=== PATIENT | female | born 1955 | race Caucasian/White ===

== ENCOUNTER → 2016-08-02 | Outpatient (CLI) | payer BC | END | disposition home or self-care (01) | LOC: MW.CHFP 09:22 | PROVIDERS: ATTEND Emergency Medicine | DX: D75.1 Secondary polycythemia (principal) | CPT/HCPCS: 36415; 99195 ==

== ENCOUNTER → 2016-08-31 | Outpatient (CLI) | payer BC ==
--- NOTE | 2016-09-03 16:03 | MY ---
EXAMINATION: Bilateral digital mammography utilizing CAD. HISTORY: Screening exam. Comparison is made to previous studies dated 08/25/2015, 08/23/2014. FINDINGS: Bilateral scattered fibroglandular densities. No suspicious calcifications, masses or architectural distortions. No pathologic appearing lymph nodes, no abnormal skin thickening or nip ple inversion. CAD highlighted regions appear normal at this time. IMPRESSION: BI-RADS category I - negative mammogram. Continued screening according to ACR-ACS gu idelines suggested. THE FALSE-NEGATIVE RATE OF MAMMOGRAM IS APPROXIMATELY 10%. MANAGEMENT OF A PALPABLE ABNORMALITY MUST BE BASED UPON CLINICAL GROUNDS. SENSITIVITY FOR DETECTION OF ABNORMALITIES IN DENSE BREASTS IS LOW. NOTE: A letter will be sent to the patient regarding findings. [facility] [place] -- [place] [phone] - FAX [phone]
== END ==
LOC: MW.MAM 10:58
PROVIDERS: ATTEND Emergency Medicine
DX: Z12.31 Encounter for screening mammogram for malignant neoplasm of breast (principal)
CPT/HCPCS: G0202; G0202-26

== ENCOUNTER 2018-11-28 09:00 | Observation (INO) | payer MEDICARE, OTHER ==
--- NOTE | 2018-11-28 09:23 | EDM.PDOC ---
ED HPI GENERAL MEDICAL PROBLEM - General Chief Complaint: Skin Complaint Stated Complaint: ANAL ABSCESS Time Seen by Provider: 11/28/18 09:20 Source of Information: Reports: Patient History Limitations: Reports: No Limitations - History of Present Illness INITIAL COMMENTS - FREE TEXT/NARRATIVE: History of present illness: []Patient has had 2 days of pain on her left buttock. She was seen in the clinic and started on antibiotics and blood work was done. Her doctor called her this morning because the CBC from yesterday had a white count of 22,000. She was told to come to the emergency room immediately. She denies any fevers, chills or drainage from the wound Review of systems: As per history of present illness and below otherwise all systems reviewed and negative. Past medical history: As per history of present illness and as reviewed below otherwise noncontributory. Surgical history: As per history of present illness and as reviewed below otherwise noncontributory. Social history: No reported history of drug or alcohol abuse. Family history: As per history of present illness and as reviewed below otherwise noncontributory. Physical exam: General: Well developed, well nourished in NAD HEENT: Atraumatic, normocephalic, pupils reactive, negative for conjunctival pallor or scleral icterus, mucous membranes moist, throat clear, neck supple, nontender, trachea midline. Lungs: Clear to auscultation, breath sounds equal bilaterally, chest nontender. Heart: S1S2, regular, negative for clicks, rubs, or JVD. Abdomen: NABS, Soft, nondistended, nontender. Negative for masses or hepatosplenomegaly. Negative for costovertebral tenderness. Pelvis: Stable nontender. Genitourinary: Deferred. Rectal: Deferred. Extremities: Atraumatic, negative for cords or calf pain. Neurovascular unremarkable. Neuro: Awake, alert, oriented. Cranial nerves II through XII unremarkable. Cerebellum unremarkable. Motor and sensory unremarkable throughout. Exam nonfocal. Skin:warm and dry Diagnostics: CBC, blood cultures, chemistry, lactic acid ultrasound of abscess Therapeutics: Declined Pain meds ED Course: Stable, consulted Dr. LAMB Impression: Buttock abscess Prescriptions: Plan: Definitive disposition and diagnosis as appropriate pending reevaluation and review of above. Lower Back Pain Score (Numeric/FACES): 5 - Related Data Allergies Allergy/AdvReac Type Severity Reaction Status Date / Time No Known Allergies Allergy Verified 11/28/18 09:14 Home Meds: Home Meds Atenolol 50 mg PO BID 01/12/16 [History] Furosemide [Lasix] 20 mg PO ASDIRECTED PRN 01/12/16 [History] NIFEdipine [Procardia Xl] 60 mg PO DAILY 01/12/16 [History] Aspirin [Ecotrin EC] 325 mg PO DAILY 11/28/18 [History] Magnesium Oxide [Magnesium] 500 mg PO DAILY 11/28/18 [History] Sulfamethoxazole/Trimethoprim [Bactrim Ds Tablet] 1 each PO BID 11/28/18 [ History] Past Medical History Other HEENT History: wears glasses Cardiovascular History: Reports: Hypertension, Other (See Below) Other Cardiovascular History: Raynauds Syndrone, takes procardia, dependant edema Respiratory History: Reports: None Gastrointestinal History: Reports: None Genitourinary History: Reports: Urinary Incontinence Other Genitourinary History: stress incontinence [employer] History: Reports: Musculoskeletal History: Reports: Arthritis Neurological History: Reports: Migraines, Other (See Below) Other Neuro History: has motion sickness Psychiatric History: Reports: None Endocrine/Metabolic History: Reports: Obesity/BMI 30+ Hematologic History: Reports: None, Blood Transfusion(s), Polycythemia Other Hematologic History: had Auto-Transfusions with both TKA Immunologic History: Reports: None Oncologic (Cancer) History: Reports: None Dermatologic History: Reports: None - Past Surgical History HEENT Surgical History: Reports: Adenoidectomy, Tonsillectomy Respiratory Surgical History: Reports: None GI Surgical History: Reports: Appendectomy, Colonoscopy Female Surgical History: Reports: Section, D&C, Hysterectomy, Oophorectomy, Other (See Below) Endocrine Surgical History: Reports: None Musculoskeletal Surgical History: Reports: Knee Replacement Oncologic Surgical History: Reports: None Social & Family History - Family History Family Medical History: Noncontributory - Tobacco Use Smoking Status *Q: Never Smoker - Recreational Drug Use Recreational Drug Use: No ED ROS GENERAL - Review of Systems Review Of Systems: See Below ED EXAM, SKIN/RASH Exam: See Below Course - Vital Signs Last Recorded V/S: Last Vital Signs Temp 98.2 F 11/28/18 15:28 Pulse 78 11/28/18 15:28 Resp 22 H 11/28/18 15:28 BP 115/56 L 11/28/18 15:28 Pulse Ox 94 L 11/28/18 15:28 - Orders/Labs/Meds Orders: Active Orders 24 hr Category Date Time Status Patient Status [ADT] Stat ADT 11/28/18 11:15 Active Intake and Output [RC] Q12H Care 11/28/18 11:46 Active Oxygen Therapy [RC] PRN Care 11/28/18 11:46 Active Up ad Carmela [RC] ASDIRECTED Care 11/28/18 11:46 Active VTE/DVT Education [RC] Q12H Care 11/28/18 11:46 Active Vital Signs [RC] Q4H Care 11/28/18 11:46 Active Regular Diet [DIET] Diet 11/28/18 Dinner Active CULTURE BLOOD [BC] Stat Lab 11/28/18 10:25 Results CULTURE BLOOD [BC] Stat Lab 11/28/18 10:40 Results Acetaminophen [Tylenol] Med 11/28/18 11:46 Active 650 mg PO Q4H PRN Enoxaparin [Lovenox] Med 11/28/18 12:00 Active 40 mg SUBCUT Q24H Morphine Med 11/28/18 11:46 Active 2 mg IVPUSH Q2H PRN Ondansetron [Zofran ODT] Med 11/28/18 11:46 Active 4 mg PO Q4H PRN Ondansetron [Zofran] Med 11/28/18 11:46 Active 4 mg IVPUSH Q4H PRN Sodium Chloride 0.9% [Saline Flush] Med 11/28/18 09:34 Active 10 ml FLUSH ASDIRECTED PRN Sodium Chloride 0.9% [Saline Flush] Med 11/28/18 09:34 Active 2.5 ml FLUSH ASDIRECTED PRN Temazepam [Restoril] Med 11/28/18 11:46 Active 15 mg PO BEDTIME PRN Blood Culture x2 Reflex Set [OM.PC] Stat Oth 11/28/18 09:34 Ordered Saline Lock Insert [OM.PC] Stat Oth 11/28/18 09:34 Ordered Resuscitation Status Routine Resus Stat 11/28/18 11:46 Ordered Medication Orders Acetaminophen (Tylenol) 650 mg PO Q4H PRN PRN Reason: Pain (Mild 1-3)/fever Hydrocodone Bitart/Acetaminophen (Philpot 325-5 Mg) 1 tab PO Q4H PRN PRN Reason: Pain Atenolol (Tenormin) 50 mg PO BID [facility] Enoxaparin Sodium (Lovenox) 40 mg SUBCUT Q24H [facility] Last Admin: 11/28/18 12:55 Dose: 40 mg Vancomycin HCl 2 gm/ Sodium (Chloride) 500 mls @ 250 mls/hr IV Q12H [facility] Last Admin: 11/28/18 13:44 Dose: 250 mls/hr Sodium Chloride (Normal Saline) 1,000 mls @ 125 mls/hr IV ASDIRECTED [facility] Stop: 11/28/18 21:14 Last Admin: 11/28/18 14:03 Dose: 125 mls/hr Ibuprofen (Motrin) 800 mg PO Q8H PRN PRN Reason: Pain Last Admin: 11/28/18 13:23 Dose: 800 mg Morphine Sulfate (Morphine) 2 mg IVPUSH Q2H PRN PRN Reason: Pain (severe 7-10) Stop: 11/29/18 11:47 Ondansetron HCl (Zofran Odt) 4 mg PO Q4H PRN PRN Reason: nausea, able to take PO Ondansetron HCl (Zofran) 4 mg IVPUSH Q4H PRN PRN Reason: Nausea Sodium Chloride (Saline Flush) 10 ml FLUSH ASDIRECTED PRN PRN Reason: Keep Vein Open Sodium Chloride (Saline Flush) 2.5 ml FLUSH ASDIRECTED PRN PRN Reason: Keep Vein Open Temazepam (Restoril) 15 mg PO BEDTIME PRN PRN Reason: Sleep Vancomycin HCl (Pharmacy To Dose - Vancomycin) 1 dose .XX ASDIRECTED [facility] Labs: Laboratory Tests 11/28/18 11/28/18 11/28/18 Range/Units 10:25 10:25 10:25 WBC 27.21 H (4.0-11.0) K/uL RBC 5.01 (4.30-5.90) M/uL Hgb 15.3 (12.0-16.0) g/dL Hct 45.5 (36.0-46.0) % MCV 90.8 (80.0-98.0) fL MCH 30.5 (27.0-32.0) pg MCHC 33.6 (31.0-37.0) g/dL RDW Std Deviation 51.7 (28.0-62.0) fl RDW Coeff of Emmanuel 16 H (11.0-15.0) % Plt Count 159 (150-400) K/uL MPV 12.10 H (7.40-12.00) fL Add Manual Diff YES Neutrophils % (Manual) 78 (48.0-80.0) % Band Neutrophils % 14 % Lymphocytes % (Manual) 3 L (16.0-40.0) % Monocytes % (Manual) 5 (0.0-15.0) % Nucleated RBC % 0.0 /100WBC Absolute Seg Neuts 21.2 H (1.4-5.7) Band Neutrophils # 3.8 Lymphocytes # (Manual) 0.8 (0.6-2.4) Monocytes # (Manual) 1.4 H (0.0-0.8) Nucleated RBCs # 0 K/uL Lactate 2.0 (0.20-2.00) mmol/L Sodium 136 (136-145) mmol/L Potassium 4.2 (3.5-5.1) mmol/L Chloride 98 (98-107) mmol/L Carbon Dioxide 24.2 (21.0-32.0) mmol/L BUN 12 (7.0-18.0) mg/dL Creatinine 0.7 (0.6-1.0) mg/dL Est Cr Clr Drug Dosing 63.37 mL/min Estimated GFR (MDRD) > 60.0 ml/min Glucose 126 H (74-106) mg/dL Hemoglobin A1c (4.5-6.2) % Calcium 9.2 (8.5-10.1) mg/dL Total Bilirubin 1.1 H (0.2-1.0) mg/dL AST 30 (15-37) IU/L ALT 34 (14-63) IU/L Alkaline Phosphatase 104 (46-116) U/L Total Protein 6.7 (6.4-8.2) g/dL Albumin 3.3 L (3.4-5.0) g/dL Globulin 3.4 (2.6-4.0) g/dL Albumin/Globulin Ratio 1.0 (0.9-1.6) /01/08 Range/Units 10:25 WBC (4.0-11.0) K/uL RBC (4.30-5.90) M/uL Hgb (12.0-16.0) g/dL Hct (36.0-46.0) % MCV (80.0-98.0) fL MCH (27.0-32.0) pg MCHC (31.0-37.0) g/dL RDW Std Deviation (28.0-62.0) fl RDW Coeff of Emmanuel (11.0-15.0) % Plt Count (150-400) K/uL MPV (7.40-12.00) fL Add Manual Diff Neutrophils % (Manual) (48.0-80.0) % Band Neutrophils % % Lymphocytes % (Manual) (16.0-40.0) % Monocytes % (Manual) (0.0-15.0) % Nucleated RBC % /100WBC Absolute Seg Neuts (1.4-5.7) Band Neutrophils # Lymphocytes # (Manual) (0.6-2.4) Monocytes # (Manual) (0.0-0.8) Nucleated RBCs # K/uL Lactate (0.20-2.00) mmol/L Sodium (136-145) mmol/L Potassium (3.5-5.1) mmol/L Chloride (98-107) mmol/L Carbon Dioxide (21.0-32.0) mmol/L BUN (7.0-18.0) mg/dL Creatinine (0.6-1.0) mg/dL Est Cr Clr Drug Dosing mL/min Estimated GFR (MDRD) ml/min Glucose (74-106) mg/dL Hemoglobin A1c 5.8 (4.5-6.2) % Calcium (8.5-10.1) mg/dL Total Bilirubin (0.2-1.0) mg/dL AST (15-37) IU/L ALT (14-63) IU/L Alkaline Phosphatase (46-116) U/L Total Protein (6.4-8.2) g/dL Albumin (3.4-5.0) g/dL Globulin (2.6-4.0) g/dL Albumin/Globulin Ratio (0.9-1.6) Meds: Medications Generic Name Dose Route Start Last Admin Trade Name Freq PRN Reason Stop Dose Admin Acetaminophen 650 mg 11/28/18 11:46 Tylenol PO Q4H PRN Pain (Mild 1-3)/fever Hydrocodone Bitart/Acetaminophen 1 tab 11/28/18 11:50 Philpot 325-5 Mg PO Q4H PRN Pain Atenolol 50 mg 11/28/18 21:00 Tenormin PO BID [facility] Enoxaparin Sodium 40 mg 11/28/18 12:00 11/28/18 12:55 Lovenox SUBCUT 40 mg Q24H [facility] Administration Vancomycin HCl 2 gm/ Sodium 500 mls @ 250 mls/hr 11/28/18 13:00 11/28/18 13: 44 Chloride IV 250 mls/hr Q12H [facility] Administration Sodium Chloride 1,000 mls @ 125 mls/hr 11/28/18 13:15 11/28/18 14:03 Normal Saline IV 11/28/18 21:14 125 mls/hr ASDIRECTED [facility] Administration Ibuprofen 800 mg 11/28/18 13:03 11/28/18 13:23 Motrin PO 800 mg Q8H PRN Administration Pain Morphine Sulfate 2 mg 11/28/18 11:46 Morphine IVPUSH 11/29/18 11:47 Q2H PRN Pain (severe 7-10) Ondansetron HCl 4 mg 11/28/18 11:46 Zofran Odt PO Q4H PRN nausea, able to take PO Ondansetron HCl 4 mg 11/28/18 11:46 Zofran IVPUSH Q4H PRN Nausea Sodium Chloride 10 ml 11/28/18 09:34 Saline Flush FLUSH ASDIRECTED PRN Keep Vein Open Sodium Chloride 2.5 ml 11/28/18 09:34 Saline Flush FLUSH ASDIRECTED PRN Keep Vein Open Temazepam 15 mg 11/28/18 11:46 Restoril PO BEDTIME PRN Sleep Vancomycin HCl 1 dose 11/28/18 12:00 Pharmacy To Dose - Vancomycin .XX ASDIRECTED [facility] Discontinued Medications Generic Name Dose Route Start Last Admin Trade Name Freq PRN Reason Stop Dose Admin Metronidazole 500 mg/ Premix 100 mls @ 100 mls/hr 11/28/18 09:34 11/28/18 10: 49 IV 11/28/18 10:33 100 mls/hr ONETIME ONE Administration Ondansetron HCl 4 mg 11/28/18 10:56 11/28/18 10:59 Zofran IVPUSH 11/28/18 10:57 4 mg ONETIME ONE Administration Departure - Departure Time of Disposition: 13:05 Disposition: Refer to Observation Condition: Good Clinical Impression: Perirectal abscess, Cellulitis of buttock - Discharge Information *PRESCRIPTION DRUG MONITORING PROGRAM REVIEWED*: No *COPY OF PRESCRIPTION DRUG MONITORING REPORT IN PATIENT DAQUAN: No - My Orders Last 24 Hours: My Active Orders 11/28/18 09:34 Sodium Chloride 0.9% [Saline Flush] 10 ml FLUSH ASDIRECTED PRN Sodium Chloride 0.9% [Saline Flush] 2.5 ml FLUSH ASDIRECTED PRN Blood Culture x2 Reflex Set [OM.PC] Stat Saline Lock Insert [OM.PC] Stat 11/28/18 10:25 CULTURE BLOOD [BC] Stat 11/28/18 10:40 CULTURE BLOOD [BC] Stat 11/28/18 11:15 Patient Status [ADT] Stat - Assessment/Plan Last 24 Hours: My Active Orders 11/28/18 09:34 Sodium Chloride 0.9% [Saline Flush] 10 ml FLUSH ASDIRECTED PRN Sodium Chloride 0.9% [Saline Flush] 2.5 ml FLUSH ASDIRECTED PRN Blood Culture x2 Reflex Set [OM.PC] Stat Saline Lock Insert [OM.PC] Stat 11/28/18 10:25 CULTURE BLOOD [BC] Stat 11/28/18 10:40 CULTURE BLOOD [BC] Stat 11/28/18 11:15 Patient Status [ADT] Stat
[2018-11-28] MEDS ORDERED: Sodium Chloride 0.9% 10 ML Syringe FLUSH PRN (09:34)
[2018-11-28] MEDS ORDERED: Sodium Chloride 0.9% 2.5 ML Syringe FLUSH PRN (09:34)
[2018-11-28] MEDS ORDERED: metroNIDAZOLE/Normal Saline 500 MG in Premix Bag 1 BAG IV ONE (09:34)
--- NOTE | 2018-11-28 10:44 | PCM.SN ---
- Free Text/Narrative Note: Called by nursing as they have had several unsuccessful IV attempts. Ultrasound was used to identify the Left AC, 20g IV catheter was introduced into the vessel, minimal blood return was noted. I was able to obtain 5mL of blood for lab studies. IV flushes with ease, secured with tape and tegaderm. Patient tolerated placement well.
[2018-11-28] MEDS ORDERED: Ondansetron 4 MG/2 ML SDV IVPUSH ONE (10:56)
--- NOTE | 2018-11-28 11:27 | US ---
HISTORY: Buttock abscess. Redness. TECHNIQUE: Targeted ultrasound in the left gluteal soft tissues. COMPARISON: None. FINDINGS: 7 mm irregularly-shaped hypoechoic focus with mobile internal debris in the left buttock in the area of redness. No other focal abnormality. IMPRESSION: 7 mm area of probable phlegmon or abscess in the left gluteal soft tissues in the area of interest. Dictated by Eran Snyder MD @ Nov 28 2018 11:24AM Signed by Dr. Eran Snyder @ Nov 28 2018 11:26AM
[2018-11-28] MEDS ORDERED: Ondansetron 4 MG Tab.DIS PO PRN (11:46)
[2018-11-28] MEDS ORDERED: Morphine 10 MG/ML Syringe IVPUSH PRN (11:46)
[2018-11-28] MEDS ORDERED: Temazepam 15 MG Cap PO PRN (11:46)
[2018-11-28] MEDS ORDERED: Acetaminophen/HYDROcodone 325-5 MG Tab PO PRN (11:50)
[2018-11-28 12:09] LABS: BLOOD UREA NITROGEN,BUN 12 mg/dL (7.0-18.0); CARBON DIOXIDE,CO2 24.2 mmol/L (21.0-32.0); CHLORIDE,CL 98 mmol/L (98-107); GLUCOSE RANDOM 126 mg/dL (74-106); POTASSIUM,K 4.2 mmol/L (3.5-5.1); SODIUM,NA 136 mmol/L (136-145)
[2018-11-28] MEDS: Enoxaparin 40 MG/0.4 ML Syringe SUBCUT SCH (12:55)
--- NOTE | 2018-11-28 13:11 | CONS ---
DATE OF CONSULTATION: 11/28/2018 DATE OF : 1955 PRIMARY CARE PHYSICIAN: Unknown PCP REASON FOR CONSULTATION: Consult was called, the patient was seen shortly after. Concerning question is cellulitis. HISTORY OF PRESENT ILLNESS: The patient is a 63-year-old morbidly obese lady and used to work in the hospital in the past. BMI of 57. Complained over 2-day history of acute onset of left buttock pain and seen in primary care provider, put on some antibiotic. White count at that time was 20,000, and 2 days later the pain did not go way and sought help in the emergency room. White count 27. Surgery was consulted. PAST MEDICAL HISTORY: Significant for no diabetes, RI, CVA. The patient has hypertension. PAST SURGICAL HISTORY: , tonsil, appendectomy, and normal vaginal delivery. ALLERGIES: Please refer to nursing for details. MEDICATION: Please refer to nursing for details. PHYSICAL EXAMINATION: GENERAL: A very pleasant lady, lying on her back, in no acute distress, smiled to the doctor, very polite, cooperative with examination. HEENT: Normocephalic and atraumatic. Sclerae anicteric. LUNGS: Clear to auscultation. HEART: Regular rate and rhythm. ABDOMEN: Soft, nondistended. No pulsating, tender midline abdominal structure. Large lower midline surgical incision. DERMATOLOGIC: Perineum examination on the left buttock right at the high end of the buttock, probably right on top of the ischial tuberosity, there is a little bit rash. Rash spreading about 10 cm, but only at the top of the rash, which is around like 3 cm, it is a little bit hard and indurated, nontender. Mild tenderness upon deep palpation. No sacral tenderness. Nontender in the perineal body. No other places that are tender. Only mild tenderness at the peak where the increased hyperemic 3 cm area. Skin intact. IMPRESSION: Cellulitis. Ultrasound shows there is no drainable material, and the patient will benefit from either IV antibiotic or oral antibiotic and follow up in my office anytime next week. If pain disappears, probably do not need to follow up. If the pain persists or getting worse, either seek help in the emergency room or follow up with me up to the weekend. By then, the infection may be more mature and materialize and maybe it is drainable. For the time being, the patient has cellulitis, no drainable abscess. The plan has been discussed with the ER provider, Dr. Sanz. As always, thank you for the kind referral. RON RUIZ /[id number]
[2018-11-28] MEDS ORDERED: Sodium Chloride 0.9% 1,000 ML IV SCH (13:15)
[2018-11-28] MEDS: Ibuprofen 800 MG Tab PO PRN (13:23)
[2018-11-28] MEDS: Vancomycin 2 GM in Sodium Chloride 0.9% 500 ML IV SCH (13:44)
--- NOTE | 2018-11-28 14:06 | PCM.HP ---
H&P History of Present Illness - General Date of Service: 11/28/18 Admit Problem/Dx: Admission Diagnosis/Problem Admission Diagnosis/Problem Cellulitis and abscess - History of Present Illness Initial Comments - Free Text/Narative: 63 y/o female presenting to the ER complaining of worsening gluteal pain. States that her pain started on Saturday and that is has been progressively getting worse. Rates pain 10/10. Saw her PCP yesterday and was prescribed Bactrim but pain was intolerable that she decided to go to the ER. She has been endorsing subjective fevers, chills. Some nausea. No vomiting, chest pain, dyspnea, abdominal pain,dysuria, diarrhea. No rashes or pain anywhere else on body. In the ER, she had leukocytosis of 27K. Was started on IV antibiotics. General surgery was consulted, however, ultrasound did not show any drainable abscess. She was admitted for IV antibiotics and pain control. Lower Back Pain Score (Numeric/FACES): 5 - Related Data Allergies/Adverse Reactions: Allergies Allergy/AdvReac Type Severity Reaction Status Date / Time No Known Allergies Allergy Verified 11/28/18 09:14 Home Medications: Home Meds Atenolol 1 tab PO BID 01/12/16 [History] Furosemide [Lasix] 1 tab PO ASDIRECTED PRN 01/12/16 [History] NIFEdipine [Procardia Xl] 1 tab PO DAILY 01/12/16 [History] Aspirin [Ecotrin EC] 325 mg PO DAILY 11/28/18 [History] Magnesium Oxide [Magnesium] 500 mg PO DAILY 11/28/18 [History] Sulfamethoxazole/Trimethoprim [Bactrim Ds Tablet] 1 each PO BID 11/28/18 [ History] Past Medical History Other HEENT History: wears glasses Cardiovascular History: Reports: Hypertension, Other (See Below) Other Cardiovascular History: Raynauds Syndrone, takes procardia, dependant edema Respiratory History: Reports: None Gastrointestinal History: Reports: None Genitourinary History: Reports: Urinary Incontinence Other Genitourinary History: stress incontinence [employer] History: Reports: Musculoskeletal History: Reports: Arthritis Neurological History: Reports: Migraines, Other (See Below) Other Neuro History: has motion sickness Psychiatric History: Reports: None Endocrine/Metabolic History: Reports: Obesity/BMI 30+ Hematologic History: Reports: None, Blood Transfusion(s), Polycythemia Other Hematologic History: had Auto-Transfusions with both TKA Immunologic History: Reports: None Oncologic (Cancer) History: Reports: None Dermatologic History: Reports: None - Past Surgical History HEENT Surgical History: Reports: Adenoidectomy, Tonsillectomy Respiratory Surgical History: Reports: None GI Surgical History: Reports: Appendectomy, Colonoscopy Female Surgical History: Reports: Section, D&C, Hysterectomy, Oophorectomy, Other (See Below) Endocrine Surgical History: Reports: None Musculoskeletal Surgical History: Reports: Knee Replacement Oncologic Surgical History: Reports: None Social & Family History - Family History Family Medical History: Noncontributory - Tobacco Use Smoking Status *Q: Never Smoker - Recreational Drug Use Recreational Drug Use: No H&P Review of Systems - Review of Systems: Review Of Systems: ROS reveals no pertinent complaints other than HPI. Exam - Exam Exam: See Below - Vital Signs Vital Signs: Last Vital Signs Temp 37.3 C 11/28/18 13:10 Pulse 86 11/28/18 13:10 Resp 18 11/28/18 13:10 BP 125/62 11/28/18 13:10 Pulse Ox 91 L 11/28/18 13:10 Weight: 142 kg - Exam General: Alert, Oriented, Cooperative Cardiovascular: Regular Rate, Regular Rhythm GI/Abdominal Exam: Normal Bowel Sounds, Soft, Non-Tender, No Distention Rectal (Female) Exam: Other (large area of cellulitis on left gluteal area. Endurated. No fluctuance. Tender. ) Extremities: Normal Inspection, No Pedal Edema Skin: Warm, Dry - Patient Data Lab Results Last 24 hrs: Laboratory Results - last 24 hr 11/28/18 11/28/18 11/28/18 Range/Units 10:25 10:25 10:25 WBC 27.21 H (4.0-11.0) K/uL RBC 5.01 (4.30-5.90) M/uL Hgb 15.3 (12.0-16.0) g/dL Hct 45.5 (36.0-46.0) % MCV 90.8 (80.0-98.0) fL MCH 30.5 (27.0-32.0) pg MCHC 33.6 (31.0-37.0) g/dL RDW Std Deviation 51.7 (28.0-62.0) fl RDW Coeff of Emmanuel 16 H (11.0-15.0) % Plt Count 159 (150-400) K/uL MPV 12.10 H (7.40-12.00) fL Add Manual Diff YES Neutrophils % (Manual) 78 (48.0-80.0) % Band Neutrophils % 14 % Lymphocytes % (Manual) 3 L (16.0-40.0) % Monocytes % (Manual) 5 (0.0-15.0) % Nucleated RBC % 0.0 /100WBC Absolute Seg Neuts 21.2 H (1.4-5.7) Band Neutrophils # 3.8 Lymphocytes # (Manual) 0.8 (0.6-2.4) Monocytes # (Manual) 1.4 H (0.0-0.8) Nucleated RBCs # 0 K/uL Lactate 2.0 (0.20-2.00) mmol/L Sodium 136 (136-145) mmol/L Potassium 4.2 (3.5-5.1) mmol/L Chloride 98 (98-107) mmol/L Carbon Dioxide 24.2 (21.0-32.0) mmol/L BUN 12 (7.0-18.0) mg/dL Creatinine 0.7 (0.6-1.0) mg/dL Est Cr Clr Drug Dosing 63.37 mL/min Estimated GFR (MDRD) > 60.0 ml/min Glucose 126 H (74-106) mg/dL Calcium 9.2 (8.5-10.1) mg/dL Total Bilirubin 1.1 H (0.2-1.0) mg/dL AST 30 (15-37) IU/L ALT 34 (14-63) IU/L Alkaline Phosphatase 104 (46-116) U/L Total Protein 6.7 (6.4-8.2) g/dL Albumin 3.3 L (3.4-5.0) g/dL Globulin 3.4 (2.6-4.0) g/dL Albumin/Globulin Ratio 1.0 (0.9-1.6) Result Diagrams: 11/28/18 10:25 11/28/18 10:25 Josiah Results Last 24 hrs: Microbiology 11/28/18 10:40 Anaerobic Blood Culture - Final Blood - Venous - Lab Draw 11/28/18 10:25 Anaerobic Blood Culture - Final Blood - Venous Problem List Initiated/Reviewed/Updated: Yes Orders Last 24hrs: Active Orders 24 hr Category Date Time Status Patient Status [ADT] Stat ADT 11/28/18 11:15 Active Intake and Output [RC] Q12H Care 11/28/18 11:46 Active Oxygen Therapy [RC] PRN Care 11/28/18 11:46 Active Up ad Carmela [RC] ASDIRECTED Care 11/28/18 11:46 Active VTE/DVT Education [RC] PER UNIT ROUTINE Care 11/28/18 11:46 Active Vital Signs [RC] Q4H Care 11/28/18 11:46 Active Regular Diet [DIET] Diet 11/28/18 Dinner Active CULTURE BLOOD [BC] Stat Lab 11/28/18 10:25 Results CULTURE BLOOD [BC] Stat Lab 11/28/18 10:40 Results VANCOMYCIN TROUGH [CHEM] Routine Lab 11/30/18 12:30 Ordered Acetaminophen [Tylenol] Med 11/28/18 11:46 Active 650 mg PO Q4H PRN Acetaminophen/HYDROcodone [[place] 325-5 MG] Med 11/28/18 11:50 Active 1 tab PO Q4H PRN Atenolol [Tenormin] Med 11/28/18 21:00 Active 50 mg PO BID Enoxaparin [Lovenox] Med 11/28/18 12:00 Active 40 mg SUBCUT Q24H Ibuprofen [Motrin] Med 11/28/18 13:03 Active 800 mg PO Q8H PRN Morphine Med 11/28/18 11:46 Active 2 mg IVPUSH Q2H PRN Ondansetron [Zofran ODT] Med 11/28/18 11:46 Active 4 mg PO Q4H PRN Ondansetron [Zofran] Med 11/28/18 11:46 Active 4 mg IVPUSH Q4H PRN Pharmacy to Dose - Vancomycin Med 11/28/18 12:00 Active 1 dose .XX ASDIRECTED Sodium Chloride 0.9% [Normal Saline] 1,000 ml Med 11/28/18 13:15 Active IV ASDIRECTED Sodium Chloride 0.9% [Saline Flush] Med 11/28/18 09:34 Active 10 ml FLUSH ASDIRECTED PRN Sodium Chloride 0.9% [Saline Flush] Med 11/28/18 09:34 Active 2.5 ml FLUSH ASDIRECTED PRN Temazepam [Restoril] Med 11/28/18 11:46 Active 15 mg PO BEDTIME PRN Vancomycin 2 gm Med 11/28/18 13:00 Active Sodium Chloride 0.9% [Normal Saline] 500 ml IV Q12H Blood Culture x2 Reflex Set [OM.PC] Stat Ot 11/28/18 09:34 Ordered Saline Lock Insert [OM.PC] Stat Oth 11/28/18 09:34 Ordered Resuscitation Status Routine Resus Stat 11/28/18 11:46 Ordered Medication Orders Acetaminophen (Tylenol) 650 mg PO Q4H PRN PRN Reason: Pain (Mild 1-3)/fever Hydrocodone Bitart/Acetaminophen ([place] 325-5 Mg) 1 tab PO Q4H PRN PRN Reason: Pain Atenolol (Tenormin) 50 mg PO BID [facility] Enoxaparin Sodium (Lovenox) 40 mg SUBCUT Q24H [facility] Last Admin: 11/28/18 12:55 Dose: 40 mg Vancomycin HCl 2 gm/ Sodium (Chloride) 500 mls @ 250 mls/hr IV Q12H [facility] Last Admin: 11/28/18 13:44 Dose: 250 mls/hr Sodium Chloride (Normal Saline) 1,000 mls @ 125 mls/hr IV ASDIRECTED [facility] Stop: 11/28/18 21:14 Ibuprofen (Motrin) 800 mg PO Q8H PRN PRN Reason: Pain Last Admin: 11/28/18 13:23 Dose: 800 mg Morphine Sulfate (Morphine) 2 mg IVPUSH Q2H PRN PRN Reason: Pain (severe 7-10) Stop: 11/29/18 11:47 Ondansetron HCl (Zofran Odt) 4 mg PO Q4H PRN PRN Reason: nausea, able to take PO Ondansetron HCl (Zofran) 4 mg IVPUSH Q4H PRN PRN Reason: Nausea Sodium Chloride (Saline Flush) 10 ml FLUSH ASDIRECTED PRN PRN Reason: Keep Vein Open Sodium Chloride (Saline Flush) 2.5 ml FLUSH ASDIRECTED PRN PRN Reason: Keep Vein Open Temazepam (Restoril) 15 mg PO BEDTIME PRN PRN Reason: Sleep Vancomycin HCl (Pharmacy To Dose - Vancomycin) 1 dose .XX ASDIRECTED [facility] Assessment/Plan Comment:: A: 1. Left Gluteal cellulitis 2. Leukocytosis 3. PMH hypertension P: 1. Will treat with IV Vancomycin. Tylenol PRN for fevers, pain. Continue home meds for hypertension. Will check HgA1c. Dispo: 1-2 days
[2018-11-28 14:36] LABS: HEMOGLOBIN A1C 5.8 % (4.5-6.2)
[2018-11-28] MEDS: Atenolol 50 MG Tab PO SCH (20:40)
[2018-11-29] MEDS: Vancomycin 2 GM in Sodium Chloride 0.9% 500 ML IV SCH ×2 (00:22→14:05)
[2018-11-29] MEDS: Ibuprofen 800 MG Tab PO PRN (00:31)
[2018-11-29] MEDS: Ondansetron 4 MG/2 ML SDV IVPUSH PRN ×2 (03:54→23:13)
[2018-11-29 06:34] LABS: CARBON DIOXIDE,CO2 20.4 mmol/L (21.0-32.0)
[2018-11-29] MEDS ORDERED: Sodium Chloride 0.9% 1,000 ML IV ONE (09:07)
[2018-11-29] MEDS: Atenolol 50 MG Tab PO SCH ×2 (09:16→21:35)
[2018-11-29] MEDS: Acetaminophen 325 MG Tab PO PRN ×2 (09:17→16:50)
[2018-11-29] MEDS: Piperacillin/Tazobactam 3.375 GM in Sodium Chloride 0.9% 50 ML IV SCH ×3 (10:24→21:36)
[2018-11-29] MEDS: Polyethylene Glycol 3350 Powder 17 GM Packet PO SCH (10:24)
--- NOTE | 2018-11-29 11:52 | PCM.PN ---
- General Info Date of Service: 11/29/18 - Review of Systems Systems Review Comment:: no fevers or chills. - Patient Data Vitals - Most Recent: Last Vital Signs Temp 36.7 C 11/29/18 07:46 Pulse 72 11/29/18 09:16 Resp 18 11/29/18 07:46 BP 124/59 L 11/29/18 09:16 Pulse Ox 94 L 11/29/18 07:46 Weight - Most Recent: 142 kg I&O - Last 24 Hours: Intake & Output 11/28/18 11/29/18 11/29/18 22:59 06:59 14:59 Intake Total 120 2600 50 Output Total 100 600 Balance 20 1999 50 Lab Results Last 24 Hours: Laboratory Results - last 24 hr 11/28/18 11/28/18 11/29/18 Range/Units 10:25 10:25 05:40 WBC 19.91 H (4.0-11.0) K/uL RBC 4.54 (4.30-5.90) M/uL Hgb 14.0 (12.0-16.0) g/dL Hct 41.0 (36.0-46.0) % MCV 90.3 (80.0-98.0) fL MCH 30.8 (27.0-32.0) pg MCHC 34.1 (31.0-37.0) g/dL RDW Std Deviation 50.4 (28.0-62.0) fl RDW Coeff of Emmanuel 15 (11.0-15.0) % Plt Count 135 L (150-400) K/uL MPV 12.40 H (7.40-12.00) fL Add Manual Diff YES Neutrophils % (Manual) 88 H (48.0-80.0) % Lymphocytes % (Manual) 5 L (16.0-40.0) % Monocytes % (Manual) 7 (0.0-15.0) % Absolute Seg Neuts 17.5 H (1.4-5.7) Lymphocytes # (Manual) 1.0 (0.6-2.4) Monocytes # (Manual) 1.4 H (0.0-0.8) Sodium 136 (136-145) mmol/L Potassium 4.2 (3.5-5.1) mmol/L Chloride 98 (98-107) mmol/L Carbon Dioxide 24.2 (21.0-32.0) mmol/L BUN 12 (7.0-18.0) mg/dL Creatinine 0.7 (0.6-1.0) mg/dL Est Cr Clr Drug Dosing 63.37 mL/min Estimated GFR (MDRD) > 60.0 ml/min Glucose 126 H (74-106) mg/dL Hemoglobin A1c 5.8 (4.5-6.2) % Calcium 9.2 (8.5-10.1) mg/dL Total Bilirubin 1.1 H (0.2-1.0) mg/dL AST 30 (15-37) IU/L ALT 34 (14-63) IU/L Alkaline Phosphatase 104 (46-116) U/L Total Protein 6.7 (6.4-8.2) g/dL Albumin 3.3 L (3.4-5.0) g/dL Globulin 3.4 (2.6-4.0) g/dL Albumin/Globulin Ratio 1.0 (0.9-1.6) 11/29/18 Range/Units 05:40 WBC (4.0-11.0) K/uL RBC (4.30-5.90) M/uL Hgb (12.0-16.0) g/dL Hct (36.0-46.0) % MCV (80.0-98.0) fL MCH (27.0-32.0) pg MCHC (31.0-37.0) g/dL RDW Std Deviation (28.0-62.0) fl RDW Coeff of Emmanuel (11.0-15.0) % Plt Count (150-400) K/uL MPV (7.40-12.00) fL Add Manual Diff Neutrophils % (Manual) (48.0-80.0) % Lymphocytes % (Manual) (16.0-40.0) % Monocytes % (Manual) (0.0-15.0) % Absolute Seg Neuts (1.4-5.7) Lymphocytes # (Manual) (0.6-2.4) Monocytes # (Manual) (0.0-0.8) Sodium 131 L (136-145) mmol/L Potassium 4.0 (3.5-5.1) mmol/L Chloride 98 (98-107) mmol/L Carbon Dioxide 20.4 L (21.0-32.0) mmol/L BUN 21 H (7.0-18.0) mg/dL Creatinine 1.3 H (0.6-1.0) mg/dL Est Cr Clr Drug Dosing 34.12 mL/min Estimated GFR (MDRD) 41.1 ml/min Glucose 169 H (74-106) mg/dL Hemoglobin A1c (4.5-6.2) % Calcium 9.2 (8.5-10.1) mg/dL Total Bilirubin (0.2-1.0) mg/dL AST (15-37) IU/L ALT (14-63) IU/L Alkaline Phosphatase (46-116) U/L Total Protein (6.4-8.2) g/dL Albumin (3.4-5.0) g/dL Globulin (2.6-4.0) g/dL Albumin/Globulin Ratio (0.9-1.6) Josiah Results Last 24 Hours: Microbiology 11/28/18 10:40 Aerobic Blood Culture - Preliminary Blood - Venous - Lab Draw NO GROWTH AFTER 1 DAY Anaerobic Blood Culture - Final 11/28/18 10:25 Aerobic Blood Culture - Preliminary Blood - Venous NO GROWTH AFTER 1 DAY Anaerobic Blood Culture - Final Med Orders - Current: Current Medications Acetaminophen (Tylenol) 650 mg PO Q4H PRN PRN Reason: Pain (Mild 1-3)/fever Last Admin: 11/29/18 09:17 Dose: 650 mg Hydrocodone Bitart/Acetaminophen ([place] 325-5 Mg) 1 tab PO Q4H PRN PRN Reason: Pain Atenolol (Tenormin) 50 mg PO BID [facility] Last Admin: 11/29/18 09:16 Dose: 50 mg Enoxaparin Sodium (Lovenox) 40 mg SUBCUT Q24H [facility] Last Admin: 11/28/18 12:55 Dose: 40 mg Vancomycin HCl 2 gm/ Sodium (Chloride) 500 mls @ 250 mls/hr IV Q12H [facility] Last Admin: 11/29/18 00:22 Dose: 250 mls/hr Sodium Chloride (Normal Saline) 1,000 mls @ 200 mls/hr IV STAT ONE Stop: 11/29/18 14:06 Last Admin: 11/29/18 09:18 Dose: 200 mls/hr Sodium Chloride (Normal Saline) 1,000 mls @ 75 mls/hr IV ASDIRECTED [facility] Piperacillin Sod/Tazobactam (Sod 3.375 gm/ Sodium Chloride) 50 mls @ 100 mls/ hr IV Q6H [facility] Last Admin: 11/29/18 10:24 Dose: 100 mls/hr Ibuprofen (Motrin) 800 mg PO Q8H PRN PRN Reason: Pain Last Admin: 11/29/18 00:31 Dose: 800 mg Ondansetron HCl (Zofran Odt) 4 mg PO Q4H PRN PRN Reason: nausea, able to take PO Ondansetron HCl (Zofran) 4 mg IVPUSH Q4H PRN PRN Reason: Nausea Last Admin: 11/29/18 03:54 Dose: 4 mg Polyethylene Glycol (Miralax) 17 gm PO DAILY [facility] Last Admin: 11/29/18 10:24 Dose: 17 gm Sodium Chloride (Saline Flush) 10 ml FLUSH ASDIRECTED PRN PRN Reason: Keep Vein Open Sodium Chloride (Saline Flush) 2.5 ml FLUSH ASDIRECTED PRN PRN Reason: Keep Vein Open Temazepam (Restoril) 15 mg PO BEDTIME PRN PRN Reason: Sleep Vancomycin HCl (Pharmacy To Dose - Vancomycin) 1 dose .XX ASDIRECTED [facility] Discontinued Medications Metronidazole 500 mg/ Premix 100 mls @ 100 mls/hr IV ONETIME ONE Stop: 11/28/18 10:33 Last Admin: 11/28/18 10:49 Dose: 100 mls/hr Sodium Chloride (Normal Saline) 1,000 mls @ 125 mls/hr IV ASDIRECTED [facility] Stop: 11/28/18 21:14 Last Admin: 11/28/18 14:03 Dose: 125 mls/hr Morphine Sulfate (Morphine) 2 mg IVPUSH Q2H PRN PRN Reason: Pain (severe 7-10) Stop: 11/29/18 11:47 Ondansetron HCl (Zofran) 4 mg IVPUSH ONETIME ONE Stop: 11/28/18 10:57 Last Admin: 11/28/18 10:59 Dose: 4 mg - Exam General: Alert, Oriented Lungs: Clear to Auscultation, Normal Respiratory Effort Cardiovascular: Regular Rate, Regular Rhythm Extremities: Non-Tender Skin: Other (right buttock with erythema and induration, but no area of fluctuance or drainage.) - Problem List Review Problem List Initiated/Reviewed/Updated: Yes - My Orders Last 24 Hours: My Active Orders 11/29/18 10:15 Piperacillin/Tazobactam [Piperacil-Tazobact] 3.375 gm Sodium Chloride 0.9% [ Normal Saline] 50 ml IV Q6H Polyethylene Glycol 3350 [MiraLAX] 17 gm PO DAILY Sodium Chloride 0.9% [Normal Saline] 1,000 ml IV ASDIRECTED 11/30/18 12:30 VANCOMYCIN TROUGH [CHEM] Routine - Plan Plan:: 63 yo female with left gluteal cellultis. We will continue zosyn and vancomycin.
[2018-11-29] MEDS: Enoxaparin 40 MG/0.4 ML Syringe SUBCUT SCH (12:45)
[2018-11-29] MEDS ORDERED: Bisacodyl 5 MG Tab PO ONE (14:13)
--- NOTE | 2018-11-29 14:20 | PCM.PN ---
- General Info Date of Service: 11/29/18 (needs iv access) Admission Dx/Problem (Free Text): Admission Diagnosis/Problem Admission Diagnosis/Problem Cellulitis and abscess Subjective Update: No acute events overnight. Afebrile. Gluteal pain improving somewhat. No chest pain, dyspnea. Functional Status: Reports: Pain Controlled - Review of Systems General: Reports: No Symptoms HEENT: Reports: No Symptoms (Dificult IV access, 22 g placed on second attempt to left hand.) Pulmonary: Reports: No Symptoms Cardiovascular: Reports: No Symptoms Gastrointestinal: Reports: No Symptoms Genitourinary: Reports: No Symptoms Musculoskeletal: Reports: No Symptoms Skin: Reports: No Symptoms Neurological: Reports: No Symptoms Psychiatric: Reports: No Symptoms - Patient Data Vitals - Most Recent: Last Vital Signs Temp 36.7 C 11/29/18 07:46 Pulse 72 11/29/18 09:16 Resp 18 11/29/18 07:46 BP 124/59 L 11/29/18 09:16 Pulse Ox 94 L 11/29/18 07:46 Weight - Most Recent: 142 kg I&O - Last 24 Hours: Intake & Output 11/28/18 11/29/18 11/29/18 22:59 06:59 14:59 Intake Total 120 2600 550 Output Total 100 600 Balance 20 2000 550 Lab Results Last 24 Hours: Laboratory Results - last 24 hr 11/28/18 11/29/18 11/29/18 Range/Units 10:25 05:40 05:40 WBC 19.91 H (4.0-11.0) K/uL RBC 4.54 (4.30-5.90) M/uL Hgb 14.0 (12.0-16.0) g/dL Hct 41.0 (36.0-46.0) % MCV 90.3 (80.0-98.0) fL MCH 30.8 (27.0-32.0) pg MCHC 34.1 (31.0-37.0) g/dL RDW Std Deviation 50.4 (28.0-62.0) fl RDW Coeff of Emmanuel 15 (11.0-15.0) % Plt Count 135 L (150-400) K/uL MPV 12.40 H (7.40-12.00) fL Add Manual Diff YES Neutrophils % (Manual) 88 H (48.0-80.0) % Lymphocytes % (Manual) 5 L (16.0-40.0) % Monocytes % (Manual) 7 (0.0-15.0) % Absolute Seg Neuts 17.5 H (1.4-5.7) Lymphocytes # (Manual) 1.0 (0.6-2.4) Monocytes # (Manual) 1.4 H (0.0-0.8) Sodium 131 L (136-145) mmol/L Potassium 4.0 (3.5-5.1) mmol/L Chloride 98 (98-107) mmol/L Carbon Dioxide 20.4 L (21.0-32.0) mmol/L BUN 21 H (7.0-18.0) mg/dL Creatinine 1.3 H (0.6-1.0) mg/dL Est Cr Clr Drug Dosing 34.12 mL/min Estimated GFR (MDRD) 41.1 ml/min Glucose 169 H (74-106) mg/dL Hemoglobin A1c 5.8 (4.5-6.2) % Calcium 9.2 (8.5-10.1) mg/dL Josiah Results Last 24 Hours: Microbiology 11/28/18 10:40 Aerobic Blood Culture - Preliminary Blood - Venous - Lab Draw NO GROWTH AFTER 1 DAY Anaerobic Blood Culture - Final 11/28/18 10:25 Aerobic Blood Culture - Preliminary Blood - Venous NO GROWTH AFTER 1 DAY Anaerobic Blood Culture - Final Med Orders - Current: Current Medications Acetaminophen (Tylenol) 650 mg PO Q4H PRN PRN Reason: Pain (Mild 1-3)/fever Last Admin: 11/29/18 09:17 Dose: 650 mg Hydrocodone Bitart/Acetaminophen ([place] 325-5 Mg) 1 tab PO Q4H PRN PRN Reason: Pain Atenolol (Tenormin) 50 mg PO BID [facility] Last Admin: 11/29/18 09:16 Dose: 50 mg Bisacodyl (Dulcolax) 10 mg PO ONETIME ONE Stop: 11/29/18 14:14 Enoxaparin Sodium (Lovenox) 40 mg SUBCUT Q24H [facility] Last Admin: 11/29/18 12:45 Dose: 40 mg Vancomycin HCl 2 gm/ Sodium (Chloride) 500 mls @ 250 mls/hr IV Q12H [facility] Last Admin: 11/29/18 14:05 Dose: 250 mls/hr Sodium Chloride (Normal Saline) 1,000 mls @ 75 mls/hr IV ASDIRECTED [facility] Piperacillin Sod/Tazobactam (Sod 3.375 gm/ Sodium Chloride) 50 mls @ 100 mls/ hr IV Q6H [facility] Last Admin: 11/29/18 10:24 Dose: 100 mls/hr Ibuprofen (Motrin) 800 mg PO Q8H PRN PRN Reason: Pain Last Admin: 11/29/18 00:31 Dose: 800 mg Ondansetron HCl (Zofran Odt) 4 mg PO Q4H PRN PRN Reason: nausea, able to take PO Ondansetron HCl (Zofran) 4 mg IVPUSH Q4H PRN PRN Reason: Nausea Last Admin: 11/29/18 03:54 Dose: 4 mg Polyethylene Glycol (Miralax) 17 gm PO DAILY [facility] Last Admin: 11/29/18 10:24 Dose: 17 gm Sodium Chloride (Saline Flush) 10 ml FLUSH ASDIRECTED PRN PRN Reason: Keep Vein Open Sodium Chloride (Saline Flush) 2.5 ml FLUSH ASDIRECTED PRN PRN Reason: Keep Vein Open Temazepam (Restoril) 15 mg PO BEDTIME PRN PRN Reason: Sleep Vancomycin HCl (Pharmacy To Dose - Vancomycin) 1 dose .XX ASDIRECTED [facility] Discontinued Medications Metronidazole 500 mg/ Premix 100 mls @ 100 mls/hr IV ONETIME ONE Stop: 11/28/18 10:33 Last Admin: 11/28/18 10:49 Dose: 100 mls/hr Sodium Chloride (Normal Saline) 1,000 mls @ 125 mls/hr IV ASDIRECTED [facility] Stop: 11/28/18 21:14 Last Admin: 11/28/18 14:03 Dose: 125 mls/hr Sodium Chloride (Normal Saline) 1,000 mls @ 200 mls/hr IV STAT ONE Stop: 11/29/18 14:06 Last Admin: 11/29/18 09:18 Dose: 200 mls/hr Morphine Sulfate (Morphine) 2 mg IVPUSH Q2H PRN PRN Reason: Pain (severe 7-10) Stop: 11/29/18 11:47 Ondansetron HCl (Zofran) 4 mg IVPUSH ONETIME ONE Stop: 11/28/18 10:57 Last Admin: 11/28/18 10:59 Dose: 4 mg - Problem List & Annotations (1) Difficult intravenous access SNOMED Code(s): 959276593 Code(s): Z78.9 - OTHER SPECIFIED HEALTH STATUS Status: Acute Priority: Low Current Visit: Yes Onset Date: ~11/29/18 - Plan Plan:: 63 yo female with left gluteal cellultis. We will continue zosyn and vancomycin.
--- NOTE | 2018-11-29 14:21 | PCM.SN ---
- Free Text/Narrative Note: Called to 201 for difficult access patient needing placement. 22g placed on second attempt to l hand. pt tolerated well.
[2018-11-29] MEDS: Sodium Chloride 0.9% 1,000 ML IV SCH (21:06)
[2018-11-30] MEDS: Acetaminophen 325 MG Tab PO PRN (01:08)
[2018-11-30] MEDS: Vancomycin 2 GM in Sodium Chloride 0.9% 500 ML IV SCH ×2 (01:14→13:53)
[2018-11-30] MEDS: Piperacillin/Tazobactam 3.375 GM in Sodium Chloride 0.9% 50 ML IV SCH ×2 (04:54→10:29)
[2018-11-30 06:25] LABS: CARBON DIOXIDE,CO2 21.6 mmol/L (21.0-32.0); POTASSIUM,K 3.7 mmol/L (3.5-5.1)
[2018-11-30] MEDS ORDERED: Pantoprazole 40 MG Tab.CR PO SCH (09:00)
[2018-11-30] MEDS: Atenolol 50 MG Tab PO SCH (09:18)
[2018-11-30] MEDS: Polyethylene Glycol 3350 Powder 17 GM Packet PO SCH (09:21)
--- NOTE | 2018-11-30 09:48 | PCM.PN ---
- General Info Date of Service: 11/30/18 Subjective Update: No acute events overnight. Afebrile. Gluteal pain improving somewhat. No chest pain, dyspnea. - Patient Data Vitals - Most Recent: Last Vital Signs Temp 36.5 C 11/30/18 08:00 Pulse 78 11/30/18 09:18 Resp 18 11/30/18 08:00 BP 110/56 L 11/30/18 09:18 Pulse Ox 95 11/30/18 08:00 Weight - Most Recent: 142 kg I&O - Last 24 Hours: Intake & Output 11/29/18 11/30/18 11/30/18 22:59 06:59 14:59 Intake Total 2468 2557 Output Total 900 950 Balance 1568 1607 Lab Results Last 24 Hours: Laboratory Results - last 24 hr 11/30/18 11/30/18 11/30/18 Range/Units 05:28 05:28 05:29 WBC 21.19 H (4.0-11.0) K/uL RBC 4.52 (4.30-5.90) M/uL Hgb 13.9 (12.0-16.0) g/dL Hct 39.9 (36.0-46.0) % MCV 88.3 (80.0-98.0) fL MCH 30.8 (27.0-32.0) pg MCHC 34.8 (31.0-37.0) g/dL RDW Std Deviation 48.1 (28.0-62.0) fl RDW Coeff of Emmanuel 15 (11.0-15.0) % Plt Count 170 (150-400) K/uL MPV 12.40 H (7.40-12.00) fL Add Manual Diff YES Neutrophils % (Manual) 82 H (48.0-80.0) % Band Neutrophils % 3 % Lymphocytes % (Manual) 4 L (16.0-40.0) % Monocytes % (Manual) 10 (0.0-15.0) % Eosinophils % (Manual) 1 (0.0-7.0) % Absolute Seg Neuts 17.4 H (1.4-5.7) Band Neutrophils # 0.6 Lymphocytes # (Manual) 0.8 (0.6-2.4) Monocytes # (Manual) 2.1 H (0.0-0.8) Eosinophils # (Manual) 0.2 (0.0-0.7) Sodium 133 L (136-145) mmol/L Potassium 3.7 (3.5-5.1) mmol/L Chloride 99 (98-107) mmol/L Carbon Dioxide 21.6 (21.0-32.0) mmol/L BUN 22 H (7.0-18.0) mg/dL Creatinine 1.4 H (0.6-1.0) mg/dL Est Cr Clr Drug Dosing 31.68 mL/min Estimated GFR (MDRD) 37.7 ml/min Glucose 130 H (74-106) mg/dL Calcium 9.2 (8.5-10.1) mg/dL Total Bilirubin 0.9 (0.2-1.0) mg/dL AST 32 (15-37) IU/L ALT 36 (14-63) IU/L Josiah Results Last 24 Hours: Microbiology 11/28/18 10:40 Aerobic Blood Culture - Preliminary Blood - Venous - Lab Draw NO GROWTH AFTER 1 DAY Anaerobic Blood Culture - Final 11/28/18 10:25 Aerobic Blood Culture - Preliminary Blood - Venous NO GROWTH AFTER 1 DAY Anaerobic Blood Culture - Final Med Orders - Current: Current Medications Acetaminophen (Tylenol) 650 mg PO Q4H PRN PRN Reason: Pain (Mild 1-3)/fever Last Admin: 11/30/18 01:08 Dose: 650 mg Hydrocodone Bitart/Acetaminophen ([place] 325-5 Mg) 1 tab PO Q4H PRN PRN Reason: Pain Atenolol (Tenormin) 50 mg PO BID [facility] Last Admin: 11/30/18 09:18 Dose: 50 mg Enoxaparin Sodium (Lovenox) 40 mg SUBCUT Q24H [facility] Last Admin: 11/29/18 12:45 Dose: 40 mg Vancomycin HCl 2 gm/ Sodium (Chloride) 500 mls @ 250 mls/hr IV Q12H [facility] Last Admin: 11/30/18 01:14 Dose: 250 mls/hr Sodium Chloride (Normal Saline) 1,000 mls @ 200 mls/hr IV ASDIRECTED [facility] Last Infusion: 11/30/18 09:22 Dose: 200 mls/hr Piperacillin Sod/Tazobactam (Sod 3.375 gm/ Sodium Chloride) 50 mls @ 100 mls/ hr IV Q6H [facility] Last Admin: 11/30/18 04:54 Dose: 100 mls/hr Ibuprofen (Motrin) 800 mg PO Q8H PRN PRN Reason: Pain Last Admin: 11/29/18 00:31 Dose: 800 mg Ondansetron HCl (Zofran Odt) 4 mg PO Q4H PRN PRN Reason: nausea, able to take PO Ondansetron HCl (Zofran) 4 mg IVPUSH Q4H PRN PRN Reason: Nausea Last Admin: 11/29/18 23:13 Dose: 4 mg Pantoprazole Sodium (Protonix) 40 mg PO ACBREAKFAST [facility] Last Admin: 11/30/18 09:18 Dose: 40 mg Polyethylene Glycol (Miralax) 17 gm PO DAILY [facility] Last Admin: 11/30/18 09:21 Dose: Not Given Sodium Chloride (Saline Flush) 10 ml FLUSH ASDIRECTED PRN PRN Reason: Keep Vein Open Sodium Chloride (Saline Flush) 2.5 ml FLUSH ASDIRECTED PRN PRN Reason: Keep Vein Open Temazepam (Restoril) 15 mg PO BEDTIME PRN PRN Reason: Sleep Vancomycin HCl (Pharmacy To Dose - Vancomycin) 1 dose .XX ASDIRECTED [facility] Discontinued Medications Bisacodyl (Dulcolax) 10 mg PO ONETIME ONE Stop: 11/29/18 14:14 Last Admin: 11/29/18 14:41 Dose: 10 mg Metronidazole 500 mg/ Premix 100 mls @ 100 mls/hr IV ONETIME ONE Stop: 11/28/18 10:33 Last Admin: 11/28/18 10:49 Dose: 100 mls/hr Sodium Chloride (Normal Saline) 1,000 mls @ 125 mls/hr IV ASDIRECTED [facility] Stop: 11/28/18 21:14 Last Admin: 11/28/18 14:03 Dose: 125 mls/hr Sodium Chloride (Normal Saline) 1,000 mls @ 200 mls/hr IV STAT ONE Stop: 11/29/18 14:06 Last Admin: 11/29/18 09:18 Dose: 200 mls/hr Morphine Sulfate (Morphine) 2 mg IVPUSH Q2H PRN PRN Reason: Pain (severe 7-10) Stop: 11/29/18 11:47 Ondansetron HCl (Zofran) 4 mg IVPUSH ONETIME ONE Stop: 11/28/18 10:57 Last Admin: 11/28/18 10:59 Dose: 4 mg - Exam General: Alert, Oriented, Cooperative, No Acute Distress Lungs: Clear to Auscultation, Normal Respiratory Effort Cardiovascular: Regular Rate, Regular Rhythm GI/Abdominal Exam: Normal Bowel Sounds, Soft, Non-Tender Skin: Other (large area of cellulitis with some induration on left gluteus. Some serosanguenous fluid from induration. No fluctuance felt.) - Problem List Review Problem List Initiated/Reviewed/Updated: Yes - My Orders Last 24 Hours: My Active Orders 11/30/18 09:00 Pantoprazole [ProTONIX] 40 mg PO ACBREAKFAST 11/30/18 09:39 Communication Order [RC] PER UNIT ROUTINE 12/01/18 05:11 BASIC METABOLIC PANEL,BMP [CHEM] AM CBC WITH AUTO DIFF [HEME] AM 12/02/18 05:11 BASIC METABOLIC PANEL,BMP [CHEM] AM CBC WITH AUTO DIFF [HEME] AM - Plan Plan:: A: 1. left gluteal cellulitis 2. Acute kidney injury P: 1. Will continue with Vancomycin and Zosyn. Increased maintenance fluids to 200 ml/hr NS. If now improvement tomorrow, will order CT to further assess the area. Dispo: 1-2 days
[2018-11-30] MEDS: Sodium Chloride 0.9% 1,000 ML IV SCH (11:07)
[2018-11-30] MEDS: Enoxaparin 40 MG/0.4 ML Syringe SUBCUT SCH (12:12)
--- NOTE | 2018-11-30 15:41 | PCM.DCSUM1 ---
<Vinny Antoine - Last Filed: 11/30/18 15:36> Discharge Summary - Hospital Course Free Text/Narrative:: 63 y/o female who had initially presented to the ER complaining of left buttocks pain. Found to have an area of cellulitis with induration on left gluteal cleft. States that it developed 2-3 days prior. U/S was performed in the ER which showed possible phlegmon. General surgery, Dr. Grady was consulted who evaluated the patient and concluded that was no abscess to be drained at the moment. She was admitted for IV antibiotics and started on Vancomycin. Her WBC decreased from 27K down to 21K. She subsequently developed an KATLIN Cr 1.4. She was aggressively hydrated with NS. Vancomycin was held due to Vanc trough of 32. Patient remained afebrile with stable vitals. Her area of cellulitis had spread to majority of left gluteus with area of induration on left gluteal cleft. Patient requested to be transferred to [facility] in [place]. Transferred patient via private vehicle to [facility] in [place]. The case was discussed with Dr. Freedman who has accepted the patient. - Discharge Data Discharge Date: 11/30/18 Discharge Disposition: DC/Tfer to Acute Hospital 02 Condition: Fair - Patient Instructions Diet: Usual Diet as Tolerated, Drink 8-10+ Glasses/Day Activity: Apply Ice, As Tolerated - Discharge Plan *PRESCRIPTION DRUG MONITORING PROGRAM REVIEWED*: Not Applicable *COPY OF PRESCRIPTION DRUG MONITORING REPORT IN PATIENT DAQUAN: Not Applicable Home Medications: Home Meds Atenolol 50 mg PO BID 01/12/16 [History] Furosemide [Lasix] 20 mg PO ASDIRECTED PRN 01/12/16 [History] NIFEdipine [Procardia Xl] 60 mg PO DAILY 01/12/16 [History] Aspirin [Ecotrin EC] 325 mg PO DAILY 11/28/18 [History] Magnesium Oxide [Magnesium] 500 mg PO DAILY 11/28/18 [History] Sulfamethoxazole/Trimethoprim [Bactrim Ds Tablet] 1 each PO BID 11/28/18 [ History] Referrals: Mike Kurtz MD [Physician] - 12/02/18 9:15 am Martha Barraza MD [Physician] - 12/05/18 2:30 pm - Discharge Summary/Plan Comment DC Time >30 min.: No - Patient Data Vitals - Most Recent: Last Vital Signs Temp 37.0 C 11/30/18 12:00 Pulse 71 11/30/18 12:00 Resp 20 11/30/18 12:00 BP 127/60 11/30/18 12:00 Pulse Ox 96 11/30/18 12:00 Weight - Most Recent: 146.42 kg I&O - Last 24 hours: Intake & Output 11/30/18 11/30/18 11/30/18 06:59 14:59 22:59 Intake Total 2557 711 Output Total 950 Balance 1607 711 Lab Results - Last 24 hrs: Laboratory Results - last 24 hr 11/30/18 11/30/18 11/30/18 Range/Units 05:28 05:28 05:29 WBC 21.19 H (4.0-11.0) K/uL RBC 4.52 (4.30-5.90) M/uL Hgb 13.9 (12.0-16.0) g/dL Hct 39.9 (36.0-46.0) % MCV 88.3 (80.0-98.0) fL MCH 30.8 (27.0-32.0) pg MCHC 34.8 (31.0-37.0) g/dL RDW Std Deviation 48.1 (28.0-62.0) fl RDW Coeff of Emmanuel 15 (11.0-15.0) % Plt Count 170 (150-400) K/uL MPV 12.40 H (7.40-12.00) fL Add Manual Diff YES Neutrophils % (Manual) 82 H (48.0-80.0) % Band Neutrophils % 3 % Lymphocytes % (Manual) 4 L (16.0-40.0) % Monocytes % (Manual) 10 (0.0-15.0) % Eosinophils % (Manual) 1 (0.0-7.0) % Absolute Seg Neuts 17.4 H (1.4-5.7) Band Neutrophils # 0.6 Lymphocytes # (Manual) 0.8 (0.6-2.4) Monocytes # (Manual) 2.1 H (0.0-0.8) Eosinophils # (Manual) 0.2 (0.0-0.7) Sodium 133 L (136-145) mmol/L Potassium 3.7 (3.5-5.1) mmol/L Chloride 99 (98-107) mmol/L Carbon Dioxide 21.6 (21.0-32.0) mmol/L BUN 22 H (7.0-18.0) mg/dL Creatinine 1.4 H (0.6-1.0) mg/dL Est Cr Clr Drug Dosing 31.68 mL/min Estimated GFR (MDRD) 37.7 ml/min Glucose 130 H (74-106) mg/dL Calcium 9.2 (8.5-10.1) mg/dL Total Bilirubin 0.9 (0.2-1.0) mg/dL AST 32 (15-37) IU/L ALT 36 (14-63) IU/L Vancomycin Trough (5.0-10.0) ug/mL 11/30/18 Range/Units 12:48 WBC (4.0-11.0) K/uL RBC (4.30-5.90) M/uL Hgb (12.0-16.0) g/dL Hct (36.0-46.0) % MCV (80.0-98.0) fL MCH (27.0-32.0) pg MCHC (31.0-37.0) g/dL RDW Std Deviation (28.0-62.0) fl RDW Coeff of Emmanuel (11.0-15.0) % Plt Count (150-400) K/uL MPV (7.40-12.00) fL Add Manual Diff Neutrophils % (Manual) (48.0-80.0) % Band Neutrophils % % Lymphocytes % (Manual) (16.0-40.0) % Monocytes % (Manual) (0.0-15.0) % Eosinophils % (Manual) (0.0-7.0) % Absolute Seg Neuts (1.4-5.7) Band Neutrophils # Lymphocytes # (Manual) (0.6-2.4) Monocytes # (Manual) (0.0-0.8) Eosinophils # (Manual) (0.0-0.7) Sodium (136-145) mmol/L Potassium (3.5-5.1) mmol/L Chloride (98-107) mmol/L Carbon Dioxide (21.0-32.0) mmol/L BUN (7.0-18.0) mg/dL Creatinine (0.6-1.0) mg/dL Est Cr Clr Drug Dosing mL/min Estimated GFR (MDRD) ml/min Glucose (74-106) mg/dL Calcium (8.5-10.1) mg/dL Total Bilirubin (0.2-1.0) mg/dL AST (15-37) IU/L ALT (14-63) IU/L Vancomycin Trough 32.2 H (5.0-10.0) ug/mL THERESA Results - Last 24 hrs: Microbiology 11/28/18 10:40 Aerobic Blood Culture - Preliminary Blood - Venous - Lab Draw NO GROWTH AFTER 2 DAYS Anaerobic Blood Culture - Final 11/28/18 10:25 Aerobic Blood Culture - Preliminary Blood - Venous NO GROWTH AFTER 2 DAYS Anaerobic Blood Culture - Final Med Orders - Current: Current Medications Acetaminophen (Tylenol) 650 mg PO Q4H PRN PRN Reason: Pain (Mild 1-3)/fever Last Admin: 11/30/18 01:08 Dose: 650 mg Hydrocodone Bitart/Acetaminophen ([place] 325-5 Mg) 1 tab PO Q4H PRN PRN Reason: Pain Atenolol (Tenormin) 50 mg PO BID [facility] Last Admin: 11/30/18 09:18 Dose: 50 mg Heparin Sodium (Porcine) (Heparin Sodium) 5,000 units SUBCUT Q8H [facility] Sodium Chloride (Normal Saline) 1,000 mls @ 200 mls/hr IV ASDIRECTED [facility] Last Admin: 11/30/18 11:07 Dose: 200 mls/hr Ondansetron HCl (Zofran Odt) 4 mg PO Q4H PRN PRN Reason: nausea, able to take PO Ondansetron HCl (Zofran) 4 mg IVPUSH Q4H PRN PRN Reason: Nausea Last Admin: 11/29/18 23:13 Dose: 4 mg Pantoprazole Sodium (Protonix) 40 mg PO ACBREAKFAST [facility] Last Admin: 11/30/18 09:18 Dose: 40 mg Polyethylene Glycol (Miralax) 17 gm PO DAILY [facility] Last Admin: 11/30/18 09:21 Dose: Not Given Sodium Chloride (Saline Flush) 10 ml FLUSH ASDIRECTED PRN PRN Reason: Keep Vein Open Sodium Chloride (Saline Flush) 2.5 ml FLUSH ASDIRECTED PRN PRN Reason: Keep Vein Open Temazepam (Restoril) 15 mg PO BEDTIME PRN PRN Reason: Sleep Vancomycin HCl (Pharmacy To Dose - Vancomycin) 1 dose .XX ASDIRECTED [facility] Discontinued Medications Bisacodyl (Dulcolax) 10 mg PO ONETIME ONE Stop: 11/29/18 14:14 Last Admin: 11/29/18 14:41 Dose: 10 mg Enoxaparin Sodium (Lovenox) 40 mg SUBCUT Q24H [facility] Last Admin: 11/30/18 12:12 Dose: 40 mg Metronidazole 500 mg/ Premix 100 mls @ 100 mls/hr IV ONETIME ONE Stop: 11/28/18 10:33 Last Admin: 11/28/18 10:49 Dose: 100 mls/hr Vancomycin HCl 2 gm/ Sodium (Chloride) 500 mls @ 250 mls/hr IV Q12H [facility] Last Admin: 11/30/18 13:53 Dose: Not Given Sodium Chloride (Normal Saline) 1,000 mls @ 125 mls/hr IV ASDIRECTED [facility] Stop: 11/28/18 21:14 Last Admin: 11/28/18 14:03 Dose: 125 mls/hr Sodium Chloride (Normal Saline) 1,000 mls @ 200 mls/hr IV STAT ONE Stop: 11/29/18 14:06 Last Admin: 11/29/18 09:18 Dose: 200 mls/hr Piperacillin Sod/Tazobactam (Sod 3.375 gm/ Sodium Chloride) 50 mls @ 100 mls/ hr IV Q6H [facility] Last Admin: 11/30/18 10:29 Dose: 100 mls/hr Ibuprofen (Motrin) 800 mg PO Q8H PRN PRN Reason: Pain Last Admin: 11/29/18 00:31 Dose: 800 mg Morphine Sulfate (Morphine) 2 mg IVPUSH Q2H PRN PRN Reason: Pain (severe 7-10) Stop: 11/29/18 11:47 Ondansetron HCl (Zofran) 4 mg IVPUSH ONETIME ONE Stop: 11/28/18 10:57 Last Admin: 11/28/18 10:59 Dose: 4 mg <Duane Major - Last Filed: 11/30/18 21:53> - Patient Data Vitals - Most Recent: Last Vital Signs Temp 37.4 C 11/30/18 15:57 Pulse 83 11/30/18 15:57 Resp 20 11/30/18 15:57 BP 150/72 H 11/30/18 15:57 Pulse Ox 95 11/30/18 15:57 I&O - Last 24 hours: Intake & Output 11/30/18 11/30/18 11/30/18 06:59 14:59 22:59 Intake Total 2557 711 1861 Output Total 950 900 Balance 1607 711 961 Lab Results - Last 24 hrs: Laboratory Results - last 24 hr 11/30/18 11/30/18 11/30/18 Range/Units 05:28 05:28 05:29 WBC 21.19 H (4.0-11.0) K/uL RBC 4.52 (4.30-5.90) M/uL Hgb 13.9 (12.0-16.0) g/dL Hct 39.9 (36.0-46.0) % MCV 88.3 (80.0-98.0) fL MCH 30.8 (27.0-32.0) pg MCHC 34.8 (31.0-37.0) g/dL RDW Std Deviation 48.1 (28.0-62.0) fl RDW Coeff of Emmanuel 15 (11.0-15.0) % Plt Count 170 (150-400) K/uL MPV 12.40 H (7.40-12.00) fL Add Manual Diff YES Neutrophils % (Manual) 82 H (48.0-80.0) % Band Neutrophils % 3 % Lymphocytes % (Manual) 4 L (16.0-40.0) % Monocytes % (Manual) 10 (0.0-15.0) % Eosinophils % (Manual) 1 (0.0-7.0) % Absolute Seg Neuts 17.4 H (1.4-5.7) Band Neutrophils # 0.6 Lymphocytes # (Manual) 0.8 (0.6-2.4) Monocytes # (Manual) 2.1 H (0.0-0.8) Eosinophils # (Manual) 0.2 (0.0-0.7) Sodium 133 L (136-145) mmol/L Potassium 3.7 (3.5-5.1) mmol/L Chloride 99 (98-107) mmol/L Carbon Dioxide 21.6 (21.0-32.0) mmol/L BUN 22 H (7.0-18.0) mg/dL Creatinine 1.4 H (0.6-1.0) mg/dL Est Cr Clr Drug Dosing 31.68 mL/min Estimated GFR (MDRD) 37.7 ml/min Glucose 130 H (74-106) mg/dL Calcium 9.2 (8.5-10.1) mg/dL Total Bilirubin 0.9 (0.2-1.0) mg/dL AST 32 (15-37) IU/L ALT 36 (14-63) IU/L Vancomycin Trough (5.0-10.0) ug/mL 11/30/18 Range/Units 12:48 WBC (4.0-11.0) K/uL RBC (4.30-5.90) M/uL Hgb (12.0-16.0) g/dL Hct (36.0-46.0) % MCV (80.0-98.0) fL MCH (27.0-32.0) pg MCHC (31.0-37.0) g/dL RDW Std Deviation (28.0-62.0) fl RDW Coeff of Emmanuel (11.0-15.0) % Plt Count (150-400) K/uL MPV (7.40-12.00) fL Add Manual Diff Neutrophils % (Manual) (48.0-80.0) % Band Neutrophils % % Lymphocytes % (Manual) (16.0-40.0) % Monocytes % (Manual) (0.0-15.0) % Eosinophils % (Manual) (0.0-7.0) % Absolute Seg Neuts (1.4-5.7) Band Neutrophils # Lymphocytes # (Manual) (0.6-2.4) Monocytes # (Manual) (0.0-0.8) Eosinophils # (Manual) (0.0-0.7) Sodium (136-145) mmol/L Potassium (3.5-5.1) mmol/L Chloride (98-107) mmol/L Carbon Dioxide (21.0-32.0) mmol/L BUN (7.0-18.0) mg/dL Creatinine (0.6-1.0) mg/dL Est Cr Clr Drug Dosing mL/min Estimated GFR (MDRD) ml/min Glucose (74-106) mg/dL Calcium (8.5-10.1) mg/dL Total Bilirubin (0.2-1.0) mg/dL AST (15-37) IU/L ALT (14-63) IU/L Vancomycin Trough 32.2 H (5.0-10.0) ug/mL THERESA Results - Last 24 hrs: Microbiology 11/28/18 10:40 Aerobic Blood Culture - Preliminary Blood - Venous - Lab Draw NO GROWTH AFTER 2 DAYS Anaerobic Blood Culture - Final 11/28/18 10:25 Aerobic Blood Culture - Preliminary Blood - Venous NO GROWTH AFTER 2 DAYS Anaerobic Blood Culture - Final Med Orders - Current: Current Medications Acetaminophen (Tylenol) 650 mg PO Q4H PRN PRN Reason: Pain (Mild 1-3)/fever Last Admin: 11/30/18 01:08 Dose: 650 mg Hydrocodone Bitart/Acetaminophen ([place]oc[place]ont[place] 325-5 Mg) 1 tab PO Q4H PRN PRN Reason: Pain Atenolol (Tenormin) 50 mg PO BID [facility] Last Admin: 11/30/18 09:18 Dose: 50 mg Heparin Sodium (Porcine) (Heparin Sodium) 5,000 units SUBCUT Q8H [facility] Sodium Chloride (Normal Saline) 1,000 mls @ 200 mls/hr IV ASDIRECTED [facility] Last Admin: 11/30/18 11:07 Dose: 200 mls/hr Ondansetron HCl (Zofran Odt) 4 mg PO Q4H PRN PRN Reason: nausea, able to take PO Ondansetron HCl (Zofran) 4 mg IVPUSH Q4H PRN PRN Reason: Nausea Last Admin: 11/29/18 23:13 Dose: 4 mg Pantoprazole Sodium (Protonix) 40 mg PO ACBREAKFAST [facility] Last Admin: 11/30/18 09:18 Dose: 40 mg Polyethylene Glycol (Miralax) 17 gm PO DAILY [facility] Last Admin: 11/30/18 09:21 Dose: Not Given Sodium Chloride (Saline Flush) 10 ml FLUSH ASDIRECTED PRN PRN Reason: Keep Vein Open Sodium Chloride (Saline Flush) 2.5 ml FLUSH ASDIRECTED PRN PRN Reason: Keep Vein Open Temazepam (Restoril) 15 mg PO BEDTIME PRN PRN Reason: Sleep Vancomycin HCl (Pharmacy To Dose - Vancomycin) 1 dose .XX ASDIRECTED [facility] Discontinued Medications Bisacodyl (Dulcolax) 10 mg PO ONETIME ONE Stop: 11/29/18 14:14 Last Admin: 11/29/18 14:41 Dose: 10 mg Enoxaparin Sodium (Lovenox) 40 mg SUBCUT Q24H [facility] Last Admin: 11/30/18 12:12 Dose: 40 mg Metronidazole 500 mg/ Premix 100 mls @ 100 mls/hr IV ONETIME ONE Stop: 11/28/18 10:33 Last Admin: 11/28/18 10:49 Dose: 100 mls/hr Vancomycin HCl 2 gm/ Sodium (Chloride) 500 mls @ 250 mls/hr IV Q12H [facility] Last Admin: 11/30/18 13:53 Dose: Not Given Sodium Chloride (Normal Saline) 1,000 mls @ 125 mls/hr IV ASDIRECTED [facility] Stop: 11/28/18 21:14 Last Admin: 11/28/18 14:03 Dose: 125 mls/hr Sodium Chloride (Normal Saline) 1,000 mls @ 200 mls/hr IV STAT ONE Stop: 11/29/18 14:06 Last Admin: 11/29/18 09:18 Dose: 200 mls/hr Piperacillin Sod/Tazobactam (Sod 3.375 gm/ Sodium Chloride) 50 mls @ 100 mls/ hr IV Q6H [facility] Last Admin: 11/30/18 10:29 Dose: 100 mls/hr Ibuprofen (Motrin) 800 mg PO Q8H PRN PRN Reason: Pain Last Admin: 11/29/18 00:31 Dose: 800 mg Morphine Sulfate (Morphine) 2 mg IVPUSH Q2H PRN PRN Reason: Pain (severe 7-10) Stop: 11/29/18 11:47 Ondansetron HCl (Zofran) 4 mg IVPUSH ONETIME ONE Stop: 11/28/18 10:57 Last Admin: 11/28/18 10:59 Dose: 4 mg - Free Text/Narrative Note: I have evaluated the patient. I have discussed findings and treatment plan with resident. I agree with the assessment and plan outlined in the following note. Patient was offered reconsultation with general surgery here as we felt an abscess was likely forming. Patient decline and requested transfer to [place].
[2018-11-30 15:57] VITALS: BP 150/72; PULSE 83
[2018-12-01] MEDS ORDERED: Heparin Sodium 5,000 Units/ML Vial SUBCUT SCH (14:00)
== END 2018-11-30 15:45 ==
LOC: MW.ED 09:00 → MW.MS 11:49
PROVIDERS: ADMIT Internal Medicine; ATTEND Internal Medicine
DX: L03.317 Cellulitis of buttock (principal); D72.829 Elevated white blood cell count, unspecified; I10 Essential (primary) hypertension; N17.9 Acute kidney failure, unspecified; M19.90 Unspecified osteoarthritis, unspecified site; E66.9 Obesity, unspecified; Z68.43 Body mass index [BMI] 50.0-59.9, adult; Z79.899 Other long term (current) drug therapy; Z79.82 Long term (current) use of aspirin; Z79.2 Long term (current) use of antibiotics
CPT/HCPCS: 36415; 76857; 80048; 80053; 80202; 82247; 83036; 83605; 84450; 84460; 85025; 87040; 96361; 96365; 96366; 96367; 96372; 96375; 96376; 99284; A9270; G0378; J1650; J2405; J2543; J3370; J3490; J7040; J7050; 36410